=== PATIENT | female | born 1965 | race African-American/Black ===

== ENCOUNTER 2017-06-02 18:30 | Emergency (ER) | payer OTHER ==
[~2017-06-02] VITALS: Ht 160 cm; Wt 81.7 kg
[~2017-06-02 18:30] MED LIST: BENADRYL25 MG PO; HTN MED PO; HYDROCODONE-AP1 EAC6 PO; MACROBID 100 M100 M1 PO; NORVASC5 MG PO; SKELAXIN 800 M800 M1 PO
[2017-06-02] MEDS ORDERED: KEFLEX500 MG PO (19:09)
[2017-06-02 19:25] VITALS: BP 142/76
== END 2017-06-02 19:09 | disposition home or self-care (01) ==
LOC: ER 18:30
DX: S61.213D Laceration without foreign body of left middle finger without damage to nail, subsequent encounter (principal); I10 Essential (primary) hypertension; W26.9XXD Contact with unspecified sharp object(s), subsequent encounter; Y92.89 Other specified places as the place of occurrence of the external cause; Y99.8 Other external cause status